=== PATIENT | female | born 2000 | race Caucasian/White ===

== ENCOUNTER 2019-01-31 20:57 | Emergency (ER) | payer SELFPAY ==
[~2019-01-31] VITALS: Ht 154.9 cm; Wt 62.9 kg
[2019-01-31 20:59] VITALS: Ht 154.9 cm; Wt 62.9 kg
[2019-01-31] MEDS ORDERED: predniSONE 20 MG TAB PO STA (21:04)
[2019-01-31] MEDS ORDERED: EPINEPHrine 1 MG INJ IM STA (21:04)
[2019-01-31] MEDS ORDERED: DIPHENHYDRAMINE 50 MG CAP PO STA (21:04)
[2019-01-31] MEDS ORDERED: FAMOTIDINE 20 MG TAB PO STA (21:04)
[2019-01-31] MEDS ORDERED: PRED20TA PO (21:56)
[2019-01-31] MEDS ORDERED: BEN25 PO (21:56)
[2019-01-31] MEDS ORDERED: EPIN0.3P4 INJ (21:56)
[2019-01-31 22:03] VITALS: BP 111/69; PULSE 105; RESP 14
--- NOTE | 2019-01-31 23:25 | ERD ---
ER Documentation Chief Complaint Chief Complaint states ate nut about 1 hour ago, c/o sob/swelling HPI Patient is a 19-year-old female who presents with shortness of breath. 1 hour ago the patient ate food at a wedding and did not realize there were not incited. She has an allergy to tree nuts. She has had this happen her before. She is never needed intubation. She does not currently have an EpiPen because she could not afford it. She has had no treatment yet. ROS All systems reviewed and are negative except as per history of present illness. Medications Home Meds Active Scripts Diphenhydramine Hcl* (Benadryl*) 25 Mg Cap, 25 MG PO Q6 PRN for ITCHING/RASH, #30 TAB Prov:ARIELLE SWEET MD 01/31/19 Prednisone* (Prednisone*) 20 Mg Tab, 60 MG PO DAILY for 4 Days, TAB Prov:ARIELLE SWEET MD 01/31/19 Epinephrine (Epipen 2-Corey) 0.3 Mg/0.3 Ml Pen.injctr, 1 EA INJ ONCE PRN for ALLERGIC REACTION, #1 EA Prov:ARIELLE SWEET MD 01/31/19 Allergies Allergies: Coded Allergies: nut - unspecified (Verified Allergy, Unknown, 01/31/19) PMhx/Soc History of Surgery: Yes (CHOLYCYSTECTOMY) Anesthesia Reaction: No Hx Neurological Disorder: No Hx Respiratory Disorders: Yes (ASTHMA) Hx Alcohol Use: Yes Hx Substance Use: No Hx Tobacco Use: No Smoking Status: Never smoker FmHx Family History: No diabetes Physical Exam Vitals Vital Signs Date Temp Pulse Resp B/P (MAP) Pulse Ox O2 O2 Flow FiO2 Time Delivery Rate 01/31/19 105 14 111/69 98 Nasal 2.0 22:03 (83) Cannula 01/31/19 Nasal 2 21:08 Cannula 01/31/19 98.9 138 20 111/54 92 20:59 (73) Physical Exam Const: Moderate distress Head: Atraumatic Eyes: Normal Conjunctiva ENT: Normal External Ears, Nose and Mouth. No tongue swelling Neck: Full range of motion. No meningismus. No stridor Resp: Clear to auscultation bilaterally Cardio: Regular rate and rhythm, no murmurs Abd: Soft, non tender, non distended. Normal bowel sounds Skin: Diffuse urticarial rash Back: No midline or flank tenderness Ext: No cyanosis, or edema Neur: Awake and alert Psych: Normal Mood and Affect Results 24 hrs Current Medications Medications Dose Sig/Tone Start Time Status Last (Trade) Ordered Route PRN Stop Time Admin Dose Reason Admin 50 mg ONCE STAT 01/31/19 DC 01/31/19 Diphenhydrami PO 21:04 21:11 ne HCl 01/31/19 21:06 (Benadryl) Epinephrine 0.3 mg ONCE STAT 01/31/19 DC 01/31/19 IM 21:04 21:11 (EPINEPHrine) 01/31/19 21:06 Famotidine 20 mg ONCE STAT 01/31/19 DC 01/31/19 (Pepcid) PO 21:04 21:11 01/31/19 21:06 Prednisone 60 mg ONCE STAT 01/31/19 DC 01/31/19 (Prednisone) PO 21:04 21:11 01/31/19 21:06 Procedures/MDM Patient is a 19-year-old female presents with acute anaphylaxis. She felt like her throat was closing although there was no sign of tongue swelling or uvular swelling. There was no stridor. The patient was given epinephrine, Benadryl, prednisone, and Pepcid. She feels much better. She was watched in the emergency department for over 1 hour. The patient will be discharged. She will need to follow-up closely with her primary doctor within 24 to 48 hours. She will be given a prescription for an EpiPen as well as prednisone and Benadryl. She can return for any worsening symptoms. Critical Care: Time: 35 minutes excluding all billable procedures. Treatments/Evaluations: Close monitoring and treatment of unstable vital signs, cardiorespiratory, and neurologic status, while maintaining tight balance of fluid, respiratory, and cardiac interventions. Departure Diagnosis: Primary Impression: Acute anaphylaxis Encounter type: initial encounter Qualified Codes: T78.2XXA - Anaphylactic shock, unspecified, initial encounter Condition: Fair Patient Instructions: Anaphylaxis, General Referrals: Your doctor Additional Instructions: Call your primary care doctor TOMORROW for an appointment during the next 1 WEEK.Tell the medical office secretary that you were referred from this facility.See the doctor sooner or return here if your condition worsens before your appointment time. ARIELLE SWEET MD Jan 31, 2019 23:24
== END 2019-01-31 22:05 | disposition home or self-care (01) ==
LOC: E/R 20:57
DX: T78.2XXA Anaphylactic shock, unspecified, initial encounter (principal); J45.909 Unspecified asthma, uncomplicated
CPT/HCPCS: 99283; J0171; J7512